=== PATIENT | female | born 1945 | race Caucasian/White ===

== ENCOUNTER 2017-07-31 17:27 | Inpatient (IN) | payer MEDICARE ==
[2017-07-31] MEDS: IOHEXOL 300 MG/ML 100ML VIAL. INT CAT (13:58)
[2017-07-31 18:07] LABS: BILIRUBIN,URINE NEGATIVE (NEG); CLARITY,URINE CLEAR; COLOR,URINE YELLOW; GLUCOSE,URINE NEGATIVE (NEG); NITRITE,URINE NEGATIVE (NEG); PH,URINE 7.5; PROTEIN,URINE 30 mg/dL (NEG-TRACE); UROBILINOGEN,URINE 0.2 mg/dL (0.2 mg/dL)
[2017-07-31 18:13] LABS: BACTERIA,URINE FEW /HPF (0-FEW)
[2017-07-31 18:22] LABS: BASO % 0 % (0-3); EOS # 0.1 x10^3/uL (0.0-0.7); EOS % 0 % (0-3); HEMATOCRIT 43.3 % (36.0-47.0); HEMOGLOBIN 14.9 g/dL (12.0-15.5); LYMPH # 0.4 x10^3/uL (1.0-4.8); LYMPH % 3 % (24-48); MEAN CORPUSCULAR HEMOGLOBIN 30 pg (25-35); MEAN CORPUSCULAR HGB CONC 35 g/dL (31-37); MEAN CORPUSCULAR VOLUME 88 fL (79-100); MONO # 0.1 x10^3/uL (0.0-1.1); MONO % 0 % (0-9); NEUT # 13.7 x10^3uL (1.8-7.7); NEUT % 97 % (31-73); PLATELET COUNT 207 x10^3/uL (140-400); RED BLOOD COUNT 4.93 x10^6/uL (3.50-5.40); RED CELL DISTRIBUTION WIDTH 13.6 % (11.5-14.5); WHITE BLOOD COUNT 14.2 x10^3/uL (4.0-11.0)
[2017-07-31 18:26] LABS: ADD MAN DIFF? YES
[2017-07-31 18:29] LABS: ANION GAP 15 (6-14); BLOOD UREA NITROGEN 18 mg/dL (7-20); BUN/CREATININE RATIO 12 (6-20); CALCIUM 8.8 mg/dL (8.5-10.1); CARBON DIOXIDE 21 mmol/L (21-32); CHLORIDE 105 mmol/L (98-107); CREATININE 1.5 mg/dL (0.6-1.0); GFR 34.2; GLUCOSE 174 mg/dL (70-99); POTASSIUM 3.1 mmol/L (3.5-5.1); SODIUM 141 mmol/L (136-145)
[2017-07-31] MEDS: ACETAMINOPHEN 500 MG TABLET PO (18:29)
[2017-07-31] MEDS: ONDANSETRON PF 4 MG/2 ML VIAL. IV (18:29)
[2017-07-31] MEDS: IV NORMAL SALINE 1000ML BAG 1,000 ML IV ×2 (18:30→19:00)
[2017-07-31 18:35] LABS: ALBUMIN 3.6 g/dL (3.4-5.0); ALBUMIN/GLOBULIN RATIO 1.2 (1.0-1.7); ALK PHOS 97 U/L (46-116); ALT (SGPT) 24 U/L (14-59); AST (SGOT) 20 U/L (15-37); TOTAL BILIRUBIN 0.9 mg/dL (0.2-1.0); TOTAL PROTEIN 6.7 g/dL (6.4-8.2)
[2017-07-31 18:40] LABS: LACTIC ACID 3.8 mmol/L (0.4-2.0)
[2017-07-31 19:01] LABS: % BANDS 32 % (0-9); % EOS 3 % (0-5); % LYMPHS 3 % (24-48); % SEGS 62 % (35-66); PLT ESTIMATE ADEQUATE (ADEQUATE)
[2017-07-31 20:57] LABS: FECAL OB PT NEGATIVE (NEG)
[2017-07-31 20:58] LABS: NEG OBC FOB NEG; POS OBC FOB POS
[2017-07-31 23:06] LABS: LACTIC ACID 2.4 mmol/L (0.4-2.0)
[2017-08-01] MEDS: diphenhydrAMINE HCL 25 MG CAPSULE PO (00:10)
[2017-08-01] MEDS: IV NORMAL SALINE 1000ML BAG 1,000 ML IV ×5 (00:16→17:17)
[2017-08-01] MEDS: fentaNYL PF VIAL 100 MCG/2 ML VIAL IV (05:04)
[2017-08-01] MEDS: ACETAMINOPHEN 325 MG TABLET. PO (05:04)
[2017-08-01] MEDS: ONDANSETRON PF 4 MG/2 ML VIAL. IV (05:09)
[2017-08-01 05:20] LABS: ADD MAN DIFF? NO
[2017-08-01 05:29] LABS: BASO % 0 % (0-3); EOS % 0 % (0-3); HEMATOCRIT 44.1 % (36.0-47.0); HEMOGLOBIN 14.8 g/dL (12.0-15.5); LYMPH # 0.6 x10^3/uL (1.0-4.8); LYMPH % 11 % (24-48); MEAN CORPUSCULAR HEMOGLOBIN 30 pg (25-35); MEAN CORPUSCULAR HGB CONC 34 g/dL (31-37); MEAN CORPUSCULAR VOLUME 88 fL (79-100); MONO # 0.1 x10^3/uL (0.0-1.1); MONO % 1 % (0-9); NEUT # 5.2 x10^3uL (1.8-7.7); NEUT % 88 % (31-73); PLATELET COUNT 184 x10^3/uL (140-400); RED BLOOD COUNT 4.98 x10^6/uL (3.50-5.40); RED CELL DISTRIBUTION WIDTH 13.6 % (11.5-14.5); WHITE BLOOD COUNT 5.9 x10^3/uL (4.0-11.0)
[2017-08-01] MEDS: LORazepam 0.5 MG TABLET PO ×2 (05:29→20:26)
[2017-08-01 05:40] LABS: POC GLUCOSE 105 mg/dL (70-99)
[2017-08-01 06:20] LABS: NT-PRO BNP 3700 pg/mL (0-124)
[2017-08-01 06:21] LABS: ALBUMIN 3.3 g/dL (3.4-5.0); ALBUMIN/GLOBULIN RATIO 0.9 (1.0-1.7); ALK PHOS 97 U/L (46-116); ALT (SGPT) 22 U/L (14-59); ANION GAP 15 (6-14); AST (SGOT) 23 U/L (15-37); BLOOD UREA NITROGEN 19 mg/dL (7-20); BUN/CREATININE RATIO 10 (6-20); CALCIUM 8.6 mg/dL (8.5-10.1); CARBON DIOXIDE 21 mmol/L (21-32); CHLORIDE 107 mmol/L (98-107); GFR 24.6; GLUCOSE 118 mg/dL (70-99); SODIUM 143 mmol/L (136-145); TOTAL BILIRUBIN 0.9 mg/dL (0.2-1.0); TOTAL PROTEIN 6.9 g/dL (6.4-8.2)
[2017-08-01 06:24] LABS: POTASSIUM 4.5 mmol/L (3.5-5.1)
[2017-08-01 07:02] LABS: LACTIC ACID 4.8 mmol/L (0.4-2.0)
[2017-08-01] MEDS ORDERED: PIPERACILLIN/TAZOBACTAM 3.375 GM in IV NORMAL SALINE 50ML 50 ML IV (07:45)
[2017-08-01] MEDS: NORMAL SALINE IV (08:07)
[2017-08-01] MEDS: TOBRAMYCIN SULFATE IV (08:07)
[2017-08-01] MEDS: PIPERACILLIN/TAZOBACTAM 2.25 GM in IV NORMAL SALINE 50ML 50 ML IV ×4 (08:08→23:40)
[2017-08-01] MEDS: ENOXAPARIN 30 MG/0.3 ML SYRINGE. SQ (12:00)
[2017-08-01 14:32] LABS: LACTIC ACID 1.8 mmol/L (0.4-2.0)
[2017-08-01 14:33] LABS: INR 1.5 (0.8-1.1); PARTIAL THROMBOPLASTIN TIME 32 SEC (24-38); PROTHROMBIN TIME PATIENT 17.1 SEC (11.7-14.0)
[2017-08-02 05:15] LABS: BASO # 0.1 x10^3/uL (0.0-0.2); BASO % 0 % (0-3); EOS # 0.1 x10^3/uL (0.0-0.7); EOS % 0 % (0-3); HEMATOCRIT 37.5 % (36.0-47.0); HEMOGLOBIN 12.6 g/dL (12.0-15.5); LYMPH # 1.2 x10^3/uL (1.0-4.8); LYMPH % 5 % (24-48); MEAN CORPUSCULAR HEMOGLOBIN 30 pg (25-35); MEAN CORPUSCULAR HGB CONC 34 g/dL (31-37); MEAN CORPUSCULAR VOLUME 88 fL (79-100); MONO % 4 % (0-9); NEUT # 22.1 x10^3uL (1.8-7.7); NEUT % 91 % (31-73); PLATELET COUNT 152 x10^3/uL (140-400); RED BLOOD COUNT 4.26 x10^6/uL (3.50-5.40); RED CELL DISTRIBUTION WIDTH 13.8 % (11.5-14.5); WHITE BLOOD COUNT 24.5 x10^3/uL (4.0-11.0)
[2017-08-02 05:20] LABS: ADD MAN DIFF? YES
[2017-08-02 05:46] LABS: ALBUMIN 2.7 g/dL (3.4-5.0); ALBUMIN/GLOBULIN RATIO 0.8 (1.0-1.7); ALK PHOS 86 U/L (46-116); ALT (SGPT) 26 U/L (14-59); ANION GAP 10 (6-14); AST (SGOT) 25 U/L (15-37); BLOOD UREA NITROGEN 17 mg/dL (7-20); BUN/CREATININE RATIO 12 (6-20); CALCIUM 8.8 mg/dL (8.5-10.1); CARBON DIOXIDE 24 mmol/L (21-32); CHLORIDE 111 mmol/L (98-107); CREATININE 1.4 mg/dL (0.6-1.0); GFR 37.1; GLUCOSE 112 mg/dL (70-99); POTASSIUM 3.6 mmol/L (3.5-5.1); SODIUM 145 mmol/L (136-145); TOTAL BILIRUBIN 0.5 mg/dL (0.2-1.0)
[2017-08-02] MEDS: PIPERACILLIN/TAZOBACTAM 2.25 GM in IV NORMAL SALINE 50ML 50 ML IV ×4 (06:05→23:46)
[2017-08-02] MEDS: IV NORMAL SALINE 1000ML BAG 1,000 ML IV ×3 (06:06→23:47)
[2017-08-02 08:58] LABS: % BANDS 24 % (0-9); % LYMPHS 4 % (24-48); % MONOS 4 % (0-10); % SEGS 68 % (35-66); PLT ESTIMATE ADEQUATE (ADEQUATE)
[2017-08-02] MEDS ORDERED: IOHEXOL 300 MG/ML 100ML VIAL. (11:42)
[2017-08-02] MEDS ORDERED: LIDOCAINE 2% TOPICAL JELLY 30GM TUBE. TP ×2 (11:42)
[2017-08-02] MEDS ORDERED: LIDOCAINE 2% PF Vial for OR 5 ML VIAL. (12:56)
[2017-08-02] MEDS ORDERED: PHENYLEPHRINE in 0.9% NACL PF 1 MG/10 ML SYRINGE. IV (12:56)
[2017-08-02] MEDS ORDERED: SEVOFLURANE 61 TO 120 MINUTES. IH (12:56)
[2017-08-02] MEDS ORDERED: ONDANSETRON PF 4 MG/2 ML VIAL. (12:56)
[2017-08-02] MEDS ORDERED: PROPOFOL 20 ML IV (12:56)
[2017-08-02] MEDS ORDERED: fentaNYL PF VIAL 100 MCG/2 ML VIAL (12:56)
[2017-08-02] MEDS ORDERED: DEXAMETHASONE SOD PHOS 20 MG/5 ML VIAL. (12:57)
[2017-08-02] MEDS: LACTOBACILLUS RHAMNOSUS GG 1 CAPSULE. PO (21:26)
[2017-08-03 05:16] LABS: ANION GAP 12 (6-14); BLOOD UREA NITROGEN 17 mg/dL (7-20); CALCIUM 8.9 mg/dL (8.5-10.1); CARBON DIOXIDE 21 mmol/L (21-32); CHLORIDE 111 mmol/L (98-107); CREATININE 1.1 mg/dL (0.6-1.0); GLUCOSE 175 mg/dL (70-99); POTASSIUM 3.8 mmol/L (3.5-5.1); SODIUM 144 mmol/L (136-145)
[2017-08-03] MEDS: PIPERACILLIN/TAZOBACTAM 2.25 GM in IV NORMAL SALINE 50ML 50 ML IV ×3 (05:59→17:44)
[2017-08-03] MEDS: IV NORMAL SALINE 1000ML BAG 1,000 ML IV ×3 (05:59→17:42)
[2017-08-03] MEDS: LACTOBACILLUS RHAMNOSUS GG 1 CAPSULE. PO ×2 (09:56→22:02)
[2017-08-03] MEDS ORDERED: ACETAMINOPHEN 325 MG TABLET. PO (10:15)
[2017-08-03] MEDS: PHENAZOPYRIDINE 200 MG TABLET. PO ×2 (10:29→22:02)
[2017-08-03] MEDS ORDERED: ACETAMINOPHEN 500 MG TABLET PO (12:45)
[2017-08-03] MEDS ORDERED: IBUPROFEN 400 MG TABLET. PO (12:45)
[2017-08-03] MEDS: LORazepam 0.5 MG TABLET PO (13:19)
[2017-08-03] MEDS ORDERED: LOPERAMIDE 2 MG CAPSULE PO (14:15)
[2017-08-03 14:36] LABS: C DIFF BY PCR Negative (Negative)
[2017-08-03] MEDS: HYDROcodone/APAP 5/325MG 1 TAB TABLET PO ×2 (17:41→22:03)
[2017-08-04] MEDS: PIPERACILLIN/TAZOBACTAM 2.25 GM in IV NORMAL SALINE 50ML 50 ML IV ×3 (00:21→09:29)
[2017-08-04 05:18] LABS: ADD MAN DIFF? NO
[2017-08-04 05:28] LABS: BASO % 0 % (0-3); EOS % 0 % (0-3); HEMATOCRIT 36.6 % (36.0-47.0); HEMOGLOBIN 12.4 g/dL (12.0-15.5); LYMPH # 1.8 x10^3/uL (1.0-4.8); LYMPH % 10 % (24-48); MEAN CORPUSCULAR HEMOGLOBIN 30 pg (25-35); MEAN CORPUSCULAR HGB CONC 34 g/dL (31-37); MEAN CORPUSCULAR VOLUME 88 fL (79-100); MONO # 0.7 x10^3/uL (0.0-1.1); MONO % 4 % (0-9); NEUT # 15.9 x10^3uL (1.8-7.7); NEUT % 86 % (31-73); PLATELET COUNT 194 x10^3/uL (140-400); RED BLOOD COUNT 4.15 x10^6/uL (3.50-5.40); RED CELL DISTRIBUTION WIDTH 14.2 % (11.5-14.5); WHITE BLOOD COUNT 18.6 x10^3/uL (4.0-11.0)
[2017-08-04 05:48] LABS: ANION GAP 10 (6-14); BLOOD UREA NITROGEN 19 mg/dL (7-20); CALCIUM 8.5 mg/dL (8.5-10.1); CARBON DIOXIDE 24 mmol/L (21-32); CHLORIDE 111 mmol/L (98-107); CREATININE 1.1 mg/dL (0.6-1.0); GLUCOSE 135 mg/dL (70-99); POTASSIUM 3.5 mmol/L (3.5-5.1); SODIUM 145 mmol/L (136-145)
[2017-08-04] MEDS: IV NORMAL SALINE 1000ML BAG 1,000 ML IV (06:42)
[2017-08-04] MEDS: HYDROcodone/APAP 5/325MG 1 TAB TABLET PO (06:43)
[2017-08-04] MEDS: LACTOBACILLUS RHAMNOSUS GG 1 CAPSULE. PO (09:28)
[2017-08-04] MEDS: PHENAZOPYRIDINE 200 MG TABLET. PO (09:28)
== END 2017-08-04 12:15 | disposition home or self-care (01) | DRG 871 ==
LOC: ER 17:27 → 6 SOUTH 19:14 → ED HOLD 20:59 → 4 NORTH 21:01
PROC: BT1F1ZZ Fluoroscopy of Left Kidney, Ureter and Bladder using Low Osmolar Contrast (ICD-10-PCS; principal; 2017-08-02 13:25)
PROC: 0T778DZ Dilation of Left Ureter with Intraluminal Device, Via Natural or Artificial Opening Endoscopic (ICD-10-PCS; 2017-08-02 13:25)
DX: A41.51 Sepsis due to Escherichia coli [E. coli] (principal); R65.21 Severe sepsis with septic shock; N17.0 Acute kidney failure with tubular necrosis; K52.1 Toxic gastroenteritis and colitis; N20.2 Calculus of kidney with calculus of ureter; B96.89 Other specified bacterial agents as the cause of diseases classified elsewhere; F17.210 Nicotine dependence, cigarettes, uncomplicated; N30.80 Other cystitis without hematuria; T36.95XA Adverse effect of unspecified systemic antibiotic, initial encounter; Z87.442 Personal history of urinary calculi; Z88.8 Allergy status to other drugs, medicaments and biological substances; Y92.89 Other specified places as the place of occurrence of the external cause
CPT/HCPCS: 36415; 51701; 71045; 74176; 76000; 80048; 80053; 81001; 82274; 82962; 83605; 83880; 85007; 85025; 85610; 85730; 87040; 87086; 87205; 87324; 93005; 96361; 96365; 96375; 99285; 99285-25; A7015; C1769; C2617; J0690; J1100; J1956; J2370; J2405; J2543; J2704; J3010; J7030; J7120; Q0163; Q9967

== ENCOUNTER 2017-10-15 11:41 | Inpatient (IN) | payer MEDICARE ==
[2017-10-15] MEDS: IV NORMAL SALINE 1000ML BAG 1,000 ML IV ×3 (12:16→20:50)
[2017-10-15] MEDS ORDERED: ACETAMINOPHEN 325 MG TABLET. PO (12:30)
[2017-10-15 13:32] LABS: BASO # 0.1 x10^3/uL (0.0-0.2); BASO % 0 % (0-3); EOS % 0 % (0-3); HEMATOCRIT 41.2 % (36.0-47.0); HEMOGLOBIN 14.2 g/dL (12.0-15.5); LYMPH # 0.8 x10^3/uL (1.0-4.8); LYMPH % 3 % (24-48); MEAN CORPUSCULAR HEMOGLOBIN 30 pg (25-35); MEAN CORPUSCULAR HGB CONC 34 g/dL (31-37); MEAN CORPUSCULAR VOLUME 86 fL (79-100); MONO # 1.3 x10^3/uL (0.0-1.1); MONO % 5 % (0-9); NEUT # 27.7 x10^3uL (1.8-7.7); NEUT % 93 % (31-73); PLATELET COUNT 277 x10^3/uL (140-400); RED BLOOD COUNT 4.79 x10^6/uL (3.50-5.40); RED CELL DISTRIBUTION WIDTH 14.2 % (11.5-14.5); WHITE BLOOD COUNT 29.9 x10^3/uL (4.0-11.0)
[2017-10-15 13:39] LABS: ADD MAN DIFF? YES
[2017-10-15 13:45] LABS: ANION GAP 10 (6-14); BLOOD UREA NITROGEN 9 mg/dL (7-20); BUN/CREATININE RATIO 8 (6-20); CALCIUM 8.6 mg/dL (8.5-10.1); CARBON DIOXIDE 23 mmol/L (21-32); CHLORIDE 101 mmol/L (98-107); CREATININE 1.1 mg/dL (0.6-1.0); GLUCOSE 163 mg/dL (70-99); POTASSIUM 3.1 mmol/L (3.5-5.1); SODIUM 134 mmol/L (136-145)
[2017-10-15 13:52] LABS: ALBUMIN 3.4 g/dL (3.4-5.0); ALK PHOS 78 U/L (46-116); ALT (SGPT) 16 U/L (14-59); AST (SGOT) 14 U/L (15-37); TOTAL BILIRUBIN 0.7 mg/dL (0.2-1.0); TOTAL PROTEIN 6.8 g/dL (6.4-8.2)
[2017-10-15 14:04] LABS: LACTIC ACID 1.5 mmol/L (0.4-2.0)
[2017-10-15 14:36] LABS: % BANDS 9 % (0-9); % LYMPHS 3 % (24-48); % MONOS 3 % (0-10); % SEGS 85 % (35-66)
[2017-10-15 14:37] LABS: PLT ESTIMATE ADEQUATE (ADEQUATE)
[2017-10-15] MEDS: VANCOMYCIN 125 MG/2.5 ML ORAL SOLUTION. PO ×2 (14:52→20:48)
[2017-10-15] MEDS: CHOLESTYRAMINE/ASPARTAME 4 GM PACKET PO (17:30)
[2017-10-15] MEDS: ONDANSETRON PF 4 MG/2 ML VIAL. IV (17:36)
[2017-10-15] MEDS ORDERED: PROCHLORPERAZINE 10 MG/2 ML VIAL. IM (23:00)
[2017-10-15] MEDS ORDERED: MORPHINE SULFATE 2 MG/ML DISP.SYRIN. IV (23:00)
[2017-10-15] MEDS: PROCHLORPERAZINE 10 MG/2 ML VIAL. IV (23:24)
[2017-10-16 04:14] LABS: ADD MAN DIFF? NO
[2017-10-16 04:19] LABS: BASO # 0.1 x10^3/uL (0.0-0.2); BASO % 0 % (0-3); EOS # 0.1 x10^3/uL (0.0-0.7); EOS % 0 % (0-3); HEMATOCRIT 38.7 % (36.0-47.0); HEMOGLOBIN 13.2 g/dL (12.0-15.5); LYMPH # 1.1 x10^3/uL (1.0-4.8); LYMPH % 6 % (24-48); MEAN CORPUSCULAR HEMOGLOBIN 30 pg (25-35); MEAN CORPUSCULAR HGB CONC 34 g/dL (31-37); MEAN CORPUSCULAR VOLUME 87 fL (79-100); MONO # 1.8 x10^3/uL (0.0-1.1); MONO % 10 % (0-9); NEUT # 14.9 x10^3uL (1.8-7.7); NEUT % 84 % (31-73); PLATELET COUNT 236 x10^3/uL (140-400); RED BLOOD COUNT 4.46 x10^6/uL (3.50-5.40); RED CELL DISTRIBUTION WIDTH 14.1 % (11.5-14.5); WHITE BLOOD COUNT 17.8 x10^3/uL (4.0-11.0)
[2017-10-16 04:30] LABS: ANION GAP 10 (6-14); BLOOD UREA NITROGEN 8 mg/dL (7-20); CARBON DIOXIDE 22 mmol/L (21-32); CHLORIDE 106 mmol/L (98-107); CREATININE 0.8 mg/dL (0.6-1.0); GFR 70.7; GLUCOSE 140 mg/dL (70-99); SODIUM 138 mmol/L (136-145)
[2017-10-16] MEDS: IV NORMAL SALINE 1000ML BAG 1,000 ML IV (04:33)
[2017-10-16 04:37] LABS: POTASSIUM 2.6 mmol/L (3.5-5.1)
[2017-10-16] MEDS: POTASSIUM CHLORIDE 20 MEQ TABLET.ER. PO ×2 (05:41→12:46)
[2017-10-16] MEDS: VANCOMYCIN 125 MG/2.5 ML ORAL SOLUTION. PO ×4 (09:10→20:45)
[2017-10-16] MEDS: CHOLESTYRAMINE/ASPARTAME 4 GM PACKET PO (09:11)
[2017-10-17] MEDS: VANCOMYCIN 125 MG/2.5 ML ORAL SOLUTION. PO ×4 (10:03→21:23)
[2017-10-18] MEDS: ZOLPIDEM 5 MG TABLET. PO (01:06)
[2017-10-18 06:05] LABS: ADD MAN DIFF? NO
[2017-10-18 06:10] LABS: BASO % 1 % (0-3); EOS # 0.2 x10^3/uL (0.0-0.7); EOS % 3 % (0-3); HEMATOCRIT 38.9 % (36.0-47.0); HEMOGLOBIN 13.3 g/dL (12.0-15.5); LYMPH # 1.8 x10^3/uL (1.0-4.8); LYMPH % 27 % (24-48); MEAN CORPUSCULAR HEMOGLOBIN 29 pg (25-35); MEAN CORPUSCULAR HGB CONC 34 g/dL (31-37); MEAN CORPUSCULAR VOLUME 86 fL (79-100); MONO # 0.8 x10^3/uL (0.0-1.1); MONO % 12 % (0-9); NEUT # 3.8 x10^3uL (1.8-7.7); NEUT % 57 % (31-73); PLATELET COUNT 281 x10^3/uL (140-400); RED BLOOD COUNT 4.53 x10^6/uL (3.50-5.40); RED CELL DISTRIBUTION WIDTH 14.3 % (11.5-14.5); WHITE BLOOD COUNT 6.7 x10^3/uL (4.0-11.0)
[2017-10-18 06:40] LABS: ANION GAP 10 (6-14); BLOOD UREA NITROGEN 4 mg/dL (7-20); CALCIUM 8.2 mg/dL (8.5-10.1); CARBON DIOXIDE 27 mmol/L (21-32); CHLORIDE 107 mmol/L (98-107); CREATININE 0.8 mg/dL (0.6-1.0); GFR 70.7; GLUCOSE 106 mg/dL (70-99); SODIUM 144 mmol/L (136-145)
[2017-10-18 06:44] LABS: POTASSIUM 2.6 mmol/L (3.5-5.1)
[2017-10-18] MEDS: POTASSIUM CHLORIDE 20 MEQ TABLET.ER. PO ×4 (08:06→21:38)
[2017-10-18] MEDS: VANCOMYCIN 125 MG/2.5 ML ORAL SOLUTION. PO ×4 (09:31→21:38)
[2017-10-18 11:05] LABS: POTASSIUM 2.8 mmol/L (3.5-5.1)
[2017-10-18] MEDS: MAG HYDROX/ALUMINUM HYD/SIMETH 30 ML ORAL.SUSP PO (12:22)
[2017-10-18 15:03] LABS: POTASSIUM 3.5 mmol/L (3.5-5.1)
[2017-10-19 07:39] LABS: ADD MAN DIFF? NO
[2017-10-19 07:44] LABS: BASO # 0.1 x10^3/uL (0.0-0.2); BASO % 1 % (0-3); EOS # 0.2 x10^3/uL (0.0-0.7); EOS % 3 % (0-3); HEMATOCRIT 42.5 % (36.0-47.0); HEMOGLOBIN 14.6 g/dL (12.0-15.5); LYMPH # 1.8 x10^3/uL (1.0-4.8); LYMPH % 28 % (24-48); MEAN CORPUSCULAR HEMOGLOBIN 30 pg (25-35); MEAN CORPUSCULAR HGB CONC 34 g/dL (31-37); MEAN CORPUSCULAR VOLUME 86 fL (79-100); MONO # 0.8 x10^3/uL (0.0-1.1); MONO % 12 % (0-9); NEUT # 3.5 x10^3uL (1.8-7.7); NEUT % 56 % (31-73); PLATELET COUNT 337 x10^3/uL (140-400); RED BLOOD COUNT 4.93 x10^6/uL (3.50-5.40); RED CELL DISTRIBUTION WIDTH 13.9 % (11.5-14.5); WHITE BLOOD COUNT 6.3 x10^3/uL (4.0-11.0)
[2017-10-19 08:34] LABS: ANION GAP 5 (6-14); BLOOD UREA NITROGEN 8 mg/dL (7-20); CALCIUM 8.8 mg/dL (8.5-10.1); CARBON DIOXIDE 30 mmol/L (21-32); CHLORIDE 107 mmol/L (98-107); CREATININE 0.8 mg/dL (0.6-1.0); GFR 70.7; GLUCOSE 113 mg/dL (70-99); POTASSIUM 3.5 mmol/L (3.5-5.1); SODIUM 142 mmol/L (136-145)
[2017-10-19] MEDS: VANCOMYCIN 125 MG/2.5 ML ORAL SOLUTION. PO ×3 (09:17→20:25)
[2017-10-19] MEDS ORDERED: FIDAXOMICIN 200 MG TABLET PO (10:30)
[2017-10-19] MEDS: LACTOBACILLUS RHAMNOSUS GG 1 CAPSULE. PO ×2 (13:05→20:25)
[2017-10-19 14:15] LABS: MAGNESIUM 2.3 mg/dL (1.8-2.4)
[2017-10-19] MEDS: ZOLPIDEM 5 MG TABLET. PO (20:25)
[2017-10-20] MEDS: LACTOBACILLUS RHAMNOSUS GG 1 CAPSULE. PO (08:33)
[2017-10-20] MEDS: VANCOMYCIN 125 MG/2.5 ML ORAL SOLUTION. PO ×3 (08:34→17:45)
[2017-10-20 09:25] LABS: ADD MAN DIFF? NO
[2017-10-20 09:34] LABS: BASO # 0.1 x10^3/uL (0.0-0.2); BASO % 1 % (0-3); EOS # 0.2 x10^3/uL (0.0-0.7); EOS % 2 % (0-3); HEMATOCRIT 40.3 % (36.0-47.0); HEMOGLOBIN 13.6 g/dL (12.0-15.5); LYMPH # 2.3 x10^3/uL (1.0-4.8); LYMPH % 28 % (24-48); MEAN CORPUSCULAR HEMOGLOBIN 29 pg (25-35); MEAN CORPUSCULAR HGB CONC 34 g/dL (31-37); MEAN CORPUSCULAR VOLUME 86 fL (79-100); MONO # 0.7 x10^3/uL (0.0-1.1); MONO % 9 % (0-9); NEUT # 5.2 x10^3uL (1.8-7.7); NEUT % 61 % (31-73); PLATELET COUNT 319 x10^3/uL (140-400); RED BLOOD COUNT 4.68 x10^6/uL (3.50-5.40); RED CELL DISTRIBUTION WIDTH 14.1 % (11.5-14.5); WHITE BLOOD COUNT 8.4 x10^3/uL (4.0-11.0)
[2017-10-20 09:42] LABS: ANION GAP 7 (6-14); BLOOD UREA NITROGEN 9 mg/dL (7-20); CALCIUM 9.1 mg/dL (8.5-10.1); CARBON DIOXIDE 29 mmol/L (21-32); CHLORIDE 105 mmol/L (98-107); CREATININE 0.9 mg/dL (0.6-1.0); GFR 61.7; GLUCOSE 175 mg/dL (70-99); POTASSIUM 3.3 mmol/L (3.5-5.1); SODIUM 141 mmol/L (136-145)
[2017-10-20 09:46] LABS: MAGNESIUM 2.1 mg/dL (1.8-2.4)
[2017-10-20] MEDS ORDERED: POTASSIUM CHLORIDE 20 MEQ TABLET.ER. PO (10:30)
[2017-10-20 11:50] LABS: THYROID STIM HORMONE (TSH) 2.201 uIU/mL (0.358-3.74)
[2017-10-20] MEDS: POTASSIUM CHLORIDE 20 MEQ TABLET.ER. PO (12:17)
== END 2017-10-20 17:50 | disposition home or self-care (01) | DRG 372 ==
LOC: 6 SOUTH 13:30 → ER 11:41 → 6 SOUTH 12:10
DX: A04.71 Enterocolitis due to Clostridium difficile, recurrent (principal); E87.1 Hypo-osmolality and hyponatremia; E87.6 Hypokalemia; E86.0 Dehydration; F17.210 Nicotine dependence, cigarettes, uncomplicated; H40.9 Unspecified glaucoma; H26.9 Unspecified cataract; M19.90 Unspecified osteoarthritis, unspecified site; D72.829 Elevated white blood cell count, unspecified; I49.3 Ventricular premature depolarization; K21.9 Gastro-esophageal reflux disease without esophagitis; Z87.440 Personal history of urinary (tract) infections; Z82.49 Family history of ischemic heart disease and other diseases of the circulatory system; Z87.442 Personal history of urinary calculi; Z88.8 Allergy status to other drugs, medicaments and biological substances; Z80.0 Family history of malignant neoplasm of digestive organs; Z90.89 Acquired absence of other organs
CPT/HCPCS: 36415; 80048; 80053; 83605; 83735; 84100; 84132; 84443; 85007; 85025; 87040; 93005; 93306; 96360; 99285; 99285-25; J0780; J2405; J7030